=== PATIENT | male | born 1945 | race Caucasian/White ===

== ENCOUNTER 2018-02-24 13:27 | Emergency (ER) | payer MEDICARE ==
[~2018-02-24] VITALS: Ht 167.6 cm; Wt 89.1 kg
[~2018-02-24 13:27] MED LIST: COZAAR25 MG OR; ECOTRIN325 MG PO; GLUCOPHAGE500 MG OR; GLUCOTROL 5 MG T5 MG OR; LIPITOR10 MG PO; LOPRESSOR25 MG PO; PLAVIX75 MG PO
[2018-02-24 14:42] VITALS: Ht 167.6 cm; Wt 89.1 kg
[2018-02-24] MEDS ORDERED: CYCLOBENZAPRINE10 MG PO (18:04)
[2018-02-24] MEDS ORDERED: TYLENOL W/CODEI1 TAB PO (18:04)
[2018-02-25 03:02] VITALS: BP 133/72
== END 2018-02-24 18:39 | disposition home or self-care (01) ==
LOC: D.ER 13:27
DX: S16.1XXA Strain of muscle, fascia and tendon at neck level, initial encounter (principal); V43.62XA Car passenger injured in collision with other type car in traffic accident, initial encounter; Y93.89 Activity, other specified; Y92.410 Unspecified street and highway as the place of occurrence of the external cause; S39.012A Strain of muscle, fascia and tendon of lower back, initial encounter; E11.9 Type 2 diabetes mellitus without complications; I10 Essential (primary) hypertension; I50.9 Heart failure, unspecified